=== PATIENT | male | born 1960 | race Caucasian/White ===

== ENCOUNTER → 2022-09-28 | Outpatient (CLI) | payer OTHER ==
[~2022-09-28] MED LIST: VICODIN 5/500 505 MG PO
== END | disposition home or self-care (01) ==
LOC: US 01:10
PROVIDERS: ATTEND Podiatrist
DX: I82.409 Acute embolism and thrombosis of unspecified deep veins of unspecified lower extremity (principal); R60.0 Localized edema

== ENCOUNTER → 2022-10-23 | Outpatient (CLI) | payer OTHER | END | disposition home or self-care (01) | LOC: MRI 10-13 13:00 → US 10-13 14:00 → MRI 01:17 | PROVIDERS: ATTEND Podiatrist Foot & Ankle Surgery | DX: M85.862 Other specified disorders of bone density and structure, left lower leg (principal); J32.0 Chronic maxillary sinusitis ==

== ENCOUNTER → 2022-11-15 | Outpatient (CLI) | payer OTHER | END | disposition home or self-care (01) | LOC: US 16:30 | PROVIDERS: ATTEND Podiatrist | DX: R60.9 Edema, unspecified (principal) ==